=== PATIENT | male | born 1980 | race Caucasian/White ===

== ENCOUNTER 2016-09-02 14:00 | Emergency (ER) | payer SELFPAY ==
[~2016-09-02 14:00] MED LIST: FLEXERIL10 MG PO; MOBIC PO; MOTRIN600 M1 PO
== END 2016-09-02 16:31 | disposition home or self-care (01) ==
LOC: SED 14:00
DX: T40.1X1A Poisoning by heroin, accidental (unintentional), initial encounter (principal); Z88.0 Allergy status to penicillin
CPT/HCPCS: 96360; 99284